=== PATIENT | male | born 1960 | race Asian ===

== ENCOUNTER → 2016-06-07 | Day surgery (SDC) | payer OTHER ==
[2016-06-05 09:00] LABS: CARBON DIOXIDE 30.1 mmol/L (21-32); CHLORIDE SERUM 105 mmol/L (98-107); CREATININE SERUM 0.8 mg/dL (0.7-1.3); GFR1 > 60 mL/min; POTASSIUM SERUM 4.4 mmol/L (3.5-5.1); SODIUM SERUM 141 mmol/L (136-145)
[2016-06-05 09:10] LABS: BASOPHIL % 1.4 % (0-2); PLATELET COUNT 199 x10^3mcL (130-400); RED CELL DISTRIBUTION WIDTH 13.4 % (11.5-14.5)
[2016-06-05 09:19] LABS: GLUCOSE SERUM 189 mg/dL (74-106)
[2016-06-07] VITALS (8 sets, daily range): BP systolic 112–136; BP diastolic 74–86
[~2016-06-07] VITALS: Ht 167.6 cm; Wt 60.8 kg
[~2016-06-07] MED LIST: Benicar PO; DIA5 PO; ZOC10 PO
== END | disposition home or self-care (01) ==
LOC: OR 05-31 13:30 → DS 05-31 13:30
PROVIDERS: Internal Medicine Interventional Cardiology
PROC: 0WP80YZ Removal of Other Device from Chest Wall, Open Approach (ICD-10-PCS; principal; 2016-06-07 12:30)
DX: Z45.09 Encounter for adjustment and management of other cardiac device (principal)
CPT/HCPCS: J0690; J2001; J3010; J3370; J7040

== ENCOUNTER 2017-03-29 18:04 | Emergency (ER) | payer OTHER ==
[~2017-03-29] VITALS: Ht 167.6 cm; Wt 63.5 kg
[2017-03-29 18:09] VITALS: Ht 167.6 cm; Wt 63.5 kg
[2017-03-29 20:07] VITALS: BP 128/95
== END 2017-03-29 20:07 | disposition home or self-care (01) ==
LOC: ED 18:04
DX: M65.272 Calcific tendinitis, left ankle and foot (principal); E11.9 Type 2 diabetes mellitus without complications; I10 Essential (primary) hypertension; E78.00 Pure hypercholesterolemia, unspecified
CPT/HCPCS: J7512; Q0092

== ENCOUNTER 2017-12-28 13:11 | Emergency (ER) | payer OTHER ==
[~2017-12-28] VITALS: Ht 167.6 cm; Wt 68.0 kg
[2017-12-28 13:19] VITALS: BP 137/84; Ht 167.6 cm; Wt 68.0 kg
== END 2017-12-28 13:48 | disposition home or self-care (01) ==
LOC: ED 13:11
DX: S61.232A Puncture wound without foreign body of right middle finger without damage to nail, initial encounter (principal); I10 Essential (primary) hypertension; E11.9 Type 2 diabetes mellitus without complications; E78.00 Pure hypercholesterolemia, unspecified; W46.1XXA Contact with contaminated hypodermic needle, initial encounter; Y93.89 Activity, other specified; Y92.89 Other specified places as the place of occurrence of the external cause; Y99.8 Other external cause status

== ENCOUNTER → 2018-02-16 | Outpatient (REF) | LOC: LB 08:25 ==

== ENCOUNTER → 2018-04-04 | Outpatient (REF) | LOC: EH 07:53 ==

== ENCOUNTER 2018-07-04 13:17 | Outpatient (REF) | payer OTHER | END 2018-07-05 | LOC: LB 13:17 | DX: Z09 Encounter for follow-up examination after completed treatment for conditions other than malignant neoplasm (principal) ==

== ENCOUNTER 2018-11-17 10:01 | Emergency (ER) | payer OTHER ==
[~2018-11-17] VITALS: Ht 167.6 cm; Wt 69.9 kg
[2018-11-17 10:07] VITALS: Ht 167.6 cm; Wt 69.9 kg
[2018-11-17 11:21] VITALS: BP 101/74
== END 2018-11-17 11:22 | disposition home or self-care (01) ==
LOC: ED 10:01
DX: M54.31 Sciatica, right side (principal); I10 Essential (primary) hypertension; E11.9 Type 2 diabetes mellitus without complications; E78.00 Pure hypercholesterolemia, unspecified
CPT/HCPCS: J1885